=== PATIENT | female | born 1985 | race Caucasian/White ===

== ENCOUNTER 2021-08-11 07:47 | Emergency (ER) | payer OTHER ==
[~2021-08-11] VITALS: Ht 177.8 cm; Wt 129.3 kg
[2021-08-11] MEDS ORDERED: TOPROL XL25 MG PO (07:54)
--- NOTE | 2021-08-11 08:12 | EKG ---
[place] [address] ELECTROCARDIOGRAM REPORT Name: SOPHIE PERAZA Room: [facility]#: [id number] Admission: Attend Phys: Discharge: Date of : 83 Date of Service: 08/11/21750 Report #: [id number] THIS REPORT FOR: //name// [facility] ED Test Date: 2021-08-11 Test Time: 07:51:36 Pat Name: SOPHIE PERAZA Department: Room: Gender: F [employer]: JAY : 1985 Requested By: Young Moreno Order Number: [id number] MD: Paco Grimaldo Measurements Intervals [place] Rate: 91 P: 41 SC: 150 QRS: 15 QRSD: 92 T: 7 QT: 344 QTc: 424 Interpretive Statements Sinus rhythm Baseline wander in lead(s) V4 No previous ECG available for comparison Electronically Signed On 08-11-2021 8:11:57 CDT by Paco Grimaldo [email or web address] <ELECTRONICALLY SIGNED> By: Paco Grimaldo MD, [facility] 08/11/21810 0 0 Paco Grimaldo MD, FACC /EPI
[2021-08-11 08:38] VITALS: BP 141/72
== END 2021-08-11 08:39 | disposition home or self-care (01) ==
LOC: M.ERS 07:47
DX: R00.2 Palpitations (principal); I10 Essential (primary) hypertension; Z79.899 Other long term (current) drug therapy